=== PATIENT | female | born 1985 ===

== ENCOUNTER 2018-01-27 01:21 | Inpatient (IN) | payer BC ==
--- NOTE | 2018-01-27 02:36 | ED PDOC ---
HPI: Abdomen Time Seen by Provider: 01/27/18 02:02 Chief Complaint (Nursing): Abdominal Pain History Per: Patient History/Exam Limitations: no limitations Onset/Duration Of Symptoms: Hrs Outside of [place] travel?: No Current Symptoms Are (Timing): Still Present Location Of Pain/Discomfort: RLQ, Periumbilical Quality Of Discomfort: Sharp, Burning Associated Symptoms: Nausea, Vomiting. denies: Fever, Chills, Diarrhea Additional Complaint(s): No PMHx presenting with lower abdominal pain, states that around 4PM she started having "burning" pain to lower abdomen near umbilicus and below, took PPI and tums without relief, pain then progressed to sharp pain associated with 4 episodes of non bloody non bilious vomiting. Normal BM's, no fevers/chills. S /P C section 4 months ago. PMD: none Past Medical History Reviewed: Historical Data, Nursing Documentation, Vital Signs Vital Signs: Last Vital Signs Temp 98.8 F 01/27/18 01:59 Pulse 93 H 01/27/18 01:59 Resp 18 01/27/18 01:59 BP 102/66 01/27/18 01:59 Pulse Ox 97 01/27/18 05:58 - Medical History PMH: No Chronic Diseases - Surgical History Surgical History: - Family History Family History: States: Unknown Family Hx - Home Medications Home Medications: Ambulatory Orders Medication Instructions Recorded No Known Home Med 01/27/18 - Allergies Allergies/Adverse Reactions: Allergies Allergy/AdvReac Type Severity Reaction Status Date / Time No Known Allergies Allergy Verified 01/27/18 02:11 Review of Systems ROS Statement: Except As Marked, All Systems Reviewed And Found Negative Gastrointestinal: Positive for: Nausea, Vomiting, Abdominal Pain Physical Exam - Reviewed Nursing Documentation Reviewed: Yes Vital Signs Reviewed: Yes - Physical Exam Appears: Positive for: Well, Non-toxic, No Acute Distress Head Exam: Positive for: ATRAUMATIC, NORMAL INSPECTION, NORMOCEPHALIC Skin: Positive for: Normal Color, Warm, DRY Eye Exam: Positive for: EOMI, Normal appearance, PERRL ENT: Positive for: Normal ENT Inspection Neck: Positive for: Normal, Painless ROM Cardiovascular/Chest: Positive for: Regular Rate, Rhythm Respiratory: Positive for: CNT, Normal Breath Sounds Gastrointestinal/Abdominal: Positive for: Normal Exam, Bowel Sounds, Soft, Tenderness (RLQ tenderness). Negative for: Organomegaly, Mass, Distended, Guarding, Rebound, Hernia Back: Positive for: Normal Inspection Extremity: Positive for: Normal ROM Neurologic/Psych: Positive for: Alert, Oriented - Laboratory Results Result Diagrams: 01/27/18 03:06 01/27/18 03:06 - ECG O2 Sat by Pulse Oximetry: 97 Pulse Ox Interpretation: Normal Medical Decision Making Medical Decision MakinAM A/P: No PMhx presenting with lower abdominal/RLQ pain -patient very well appearing, normal vitals -concerned for appendicitis v. mesenteric adenitis v. complications of -will get CT, labs, give toradol and re-eval 0544 CT Abdomen/Pelvis FINDINGS: Lung bases: The visualized portions of the lung bases are normal. ABDOMEN: Liver: There are no focal liver lesions identified. Gallbladder and bile ducts: The gallbladder is normal. There is no evidence of biliary ductal dilation. No calcified stones. Pancreas: The pancreas appears normal. No ductal dilation. Spleen: The spleen is normal. Adrenals: The adrenal glands are normal. Kidneys and ureters: The kidneys appear normal. No hydronephrosis. Stomach and bowel: The stomach is normal. The duodenum is unremarkable. The colon is normal. No obstruction. No mucosal thickening PELVIS: Appendix: There is dilatation of the appendix up to 10 mm with moderate periappendiceal inflammatory stranding consistent with acute appendicitis. Bladder: The bladder is normal. Reproductive: The uterus is normal. There is a 1.8 cm RIGHT ovarian cyst. ABDOMEN and PELVIS: Intraperitoneal space: There is a small amount of free pelvic fluid present. No free air. Bones/joints: No acute fracture. No dislocation. Soft tissues: Normal. Vasculature: Normal. No abdominal aortic aneurysm. Lymph nodes: Normal. No enlarged lymph nodes. IMPRESSION: Acute appendicitis. Dictated and Authenticated by: Blaine Astudillo MD 01/27/2018 5:44 AM Eastern Time ([place] & [place]) 0550 Results explained to patient. resident medical officer is aware and will see patient on bedside. 0600 Patient to be admitted to Dr. Dominguez' service. Patient comfortable at this time. Disposition - Clinical Impression Clinical Impression: Appendicitis - Patient ED Disposition Is Patient to be Admitted: No - Disposition Disposition Time: 06:23 Condition: FAIR Forms: Ranker (Setswana)
[2018-01-27 03:12] LABS: BASO # 0.1 K/uL (0.0-0.2); BASO % 0.4 % (0.0-2.0); HEMOGLOBIN 12.7 g/dL (12.0-16.0); LYMPH # 0.8 K/uL (1.0-4.3); LYMPH % 5.7 % (20.0-40.0); MEAN CELL VOLUME 73.6 fl (81.0-99.0); MEAN CORPUSCULAR HEMOGLOBIN 23.9 pg (27.0-31.0); MEAN CORPUSCULAR HGB CONC 32.5 g/dL (33.0-37.0); MONO % 7.4 % (0.0-10.0); NEUT # 11.9 K/uL (1.8-7.0); NEUT % 86.5 % (50.0-75.0); PLATELET COUNT 190 K/uL (130-400); RBC 5.31 Mil/uL (3.80-5.20); RED CELL DISTRIBUTION WIDTH 15.1 % (11.5-14.5); WHITE BLOOD COUNT 13.7 K/uL (4.8-10.8)
[2018-01-27 03:21] LABS: SQUAMOUS EPITHIAL 1 /hpf (0-5); URINE BACTERIA OCC (<OCC); URINE BILIRUBIN NEGATIVE (NEGATIVE); URINE BLOOD NEGATIVE (NEGATIVE); URINE CLARITY CLOUDY (Clear); URINE COLOR YELLOW (YELLOW); URINE GLUCOSE (UA) NEG (Normal); URINE LEUKOCYTE ESTERASE NEG Leu/uL (Negative); URINE PROTEIN NEGATIVE (NEGATIVE); URINE UROBILINOGEN 0.2-1.0 mg/dL (0.2-1.0)
[2018-01-27 03:26] LABS: ALB/GLOB RATIO 1.1 (1.0-2.1); ALBUMIN 4.5 g/dL (3.5-5.0); ALT/SGPT 83 U/L (9-52); AST/SGOT 45 U/L (14-36); BLOOD UREA NITROGEN 13 mg/dl (7-17); CALCIUM 10.7 mg/dL (8.4-10.2); GFR AFRICAN-AMERICAN > 60; GFR NON-AFRICAN AMERICAN > 60
[2018-01-27] MEDS ORDERED: Sodium Chloride 0.9% 50 ML IV ONE (03:35)
[2018-01-27] MEDS ORDERED: Iohexol 300 100 ML IJ ONE (03:35)
[2018-01-27 04:52] LABS: ANISOCYTOSIS SLIGHT; BANDS 2 % (0-2); HYPOCHROMIC SLIGHT; LYMPHOCYTE 4 % (20-50); MONOCYTE 7 % (0-10); NEUTROPHIL 86 % (42-75); OVALOCYTES SLIGHT; PLATELET ESTIMATE NORMAL (NORMAL); REACTIVE LYMPHOCYTES 1 % (0-0); TOTAL CELLS COUNTED 100
[2018-01-27 04:53] LABS: TEARDROP CELLS SLIGHT
[2018-01-27] MEDS ORDERED: Piperacillin/Tazobact 3.375 GM in Sodium Chloride 0.9% 100 ML IVPB STA (05:44)
[2018-01-27] MEDS ORDERED: Sodium Chloride 0.9% 1,000 ML IV STA (05:45)
[2018-01-27] MEDS ORDERED: Piperacillin/Tazobact 3.375 gm Inj IVPB ONE (05:53)
[2018-01-27] MEDS ORDERED: Lactated Ringer's 1,000 ML IV SCH ×2 (06:45→09:15)
--- NOTE | 2018-01-27 06:45 | CP.PCM.HP ---
History of Present Illness - History of Present Illness History of Present Illness: Surgery H&P CC: ABD Pain 32F pmhx signficant for recent 3 months ago presents to ED with subumblical burning sensation that turned into pain radiating to the right lower quadrant that started at 1730 yesterday evening. Patient complains of associated nausea, non-bloody, bilious vomiting, and diarrhea. Patient states recent foreign travel to [place] and came back 3 days ago. Denies recent sick contacts Denies: fevers, chills, chest pain, shortness of breath, changes in vision, numbness/tingling in extremities PMH: denies PSH: (3mo ago) ALL: NKDA SocialHx: social ETOH, denies tobacco, recreational drug use FH: non-contributory Present on Admission - Present on Admission Any Indicators Present on Admission: No Review of Systems - Review of Systems All systems: reviewed and no additional remarkable complaints except - Constitutional Constitutional: As Per HPI Past Patient History - Past Social History Smoking Status: Never Smoked - PSYCHIATRIC Hx Substance Use: No - SURGICAL HISTORY Hx Surgeries: No Meds Home Medications: Home Medication List Medication Instructions Recorded Confirmed Type Ciprofloxacin [Cipro] 500 mg PO Q12 7 Days tab 01/27/18 Rx Ibuprofen [Motrin Tab] 800 mg PO Q8 #20 tab 01/27/18 Rx metroNIDAZOLE [Flagyl] 500 mg PO Q8 7 Days tab 01/27/18 Rx Allergies/Adverse Reactions: Allergies Allergy/AdvReac Type Severity Reaction Status Date / Time No Known Allergies Allergy Verified 01/27/18 02:11 Physical Exam - Constitutional Appears: Non-toxic, No Acute Distress - Head Exam Head Exam: ATRAUMATIC - Eye Exam Eye Exam: EOMI. absent: Scleral icterus - ENT Exam ENT Exam: Mucous Membranes Moist - Respiratory Exam Respiratory Exam: NORMAL BREATHING PATTERN. absent: Accessory Muscle Use, Respiratory Distress - Cardiovascular Exam Cardiovascular Exam: +S1, +S2. absent: Bradycardia, Tachycardia - GI/Abdominal Exam GI & Abdominal Exam: Rebound, Soft, Tenderness (TTP RLQ, +Mcburny). absent: Distended, Firm, Guarding, Hernia, Rigid - Extremities Exam Extremities exam: Positive for: normal inspection. Negative for: calf tenderness - Back Exam Back exam: absent: CVA tenderness (L), CVA tenderness (R) - Neurological Exam Neurological exam: Alert, Oriented x3 - Psychiatric Exam Psychiatric exam: Normal Affect - Skin Skin Exam: Intact, Warm Results - Vital Signs Recent Vital Signs: Last Vital Signs Temp 98.8 F 01/27/18 01:59 Pulse 93 H 01/27/18 01:59 Resp 18 01/27/18 01:59 BP 102/66 01/27/18 01:59 Pulse Ox 97 01/27/18 06:23 - Labs Result Diagrams: 01/27/18 03:06 01/27/18 03:06 Labs: Laboratory Results - last 24 hr 01/27/18 01/27/18 01/27/18 03:00 03:06 03:06 WBC 13.7 H RBC 5.31 H Hgb 12.7 Hct 39.1 MCV 73.6 L MCH 23.9 L MCHC 32.5 L RDW 15.1 H Plt Count 190 MPV 9.0 Neut % (Auto) 86.5 H Lymph % (Auto) 5.7 L [place] % (Auto) 7.4 Eos % (Auto) 0.0 Baso % (Auto) 0.4 Neut # (Auto) 11.9 H Lymph # (Auto) 0.8 L [place] # (Auto) 1.0 H Eos # (Auto) 0.0 Baso # (Auto) 0.1 Neutrophils % (Manual) 86 H Band Neutrophils % 2 Lymphocytes % (Manual) 4 L Reactive Lymphs % 1 H Monocytes % (Manual) 7 Platelet Estimate Normal Hypochromasia (manual) Slight Anisocytosis (manual) Slight Tear Drop Cells Slight Ovalocytes Slight Sodium 140 Potassium 4.6 Chloride 104 Carbon Dioxide 22 Anion Gap 19 BUN 13 Creatinine 0.6 L Est GFR ( Amer) > 60 Est GFR (Non-Af Amer) > 60 Random Glucose 124 H Lactic Acid Calcium 10.7 H Total Bilirubin 1.2 AST 45 H ALT 83 H Alkaline Phosphatase 84 Total Protein 8.4 H Albumin 4.5 Globulin 3.9 Albumin/Globulin Ratio 1.1 Urine Color Urine Clarity Urine pH Ur Specific [place] Urine Protein Urine Glucose (UA) Urine Ketones Urine Blood Urine Nitrate Urine Bilirubin Urine Urobilinogen Ur Leukocyte Esterase Urine RBC (Auto) Urine Microscopic WBC Ur Squamous Epith Cells Urine Bacteria Blood Type B POSITIVE Antibody Screen Negative BBK History Checked No verified bt 01/27/18 01/27/18 03:06 03:15 WBC RBC Hgb Hct MCV MCH MCHC RDW Plt Count MPV Neut % (Auto) Lymph % (Auto) [place] % (Auto) Eos % (Auto) Baso % (Auto) Neut # (Auto) Lymph # (Auto) [place] # (Auto) Eos # (Auto) Baso # (Auto) Neutrophils % (Manual) Band Neutrophils % Lymphocytes % (Manual) Reactive Lymphs % Monocytes % (Manual) Platelet Estimate Hypochromasia (manual) Anisocytosis (manual) Tear Drop Cells Ovalocytes Sodium Potassium Chloride Carbon Dioxide Anion Gap BUN Creatinine Est GFR ( Amer) Est GFR (Non-Af Amer) Random Glucose Lactic Acid 1.1 Calcium Total Bilirubin AST ALT Alkaline Phosphatase Total Protein Albumin Globulin Albumin/Globulin Ratio Urine Color Yellow Urine Clarity Cloudy Urine pH 6.0 Ur Specific [place] 1.025 Urine Protein Negative Urine Glucose (UA) Neg Urine Ketones Negative Urine Blood Negative Urine Nitrate Negative Urine Bilirubin Negative Urine Urobilinogen 0.2-1.0 Ur Leukocyte Esterase Neg Urine RBC (Auto) 4 H Urine Microscopic WBC 1 Ur Squamous Epith Cells 1 Urine Bacteria Occ H Blood Type Antibody Screen BBK History Checked Assessment & Plan - Assessment and Plan (Free Text) Assessment: 32F w/ acute appendicitis Plan: - NPO - IVF/Abx - Pain control and anti-emetic PRN - plan for OR today - further recs per Dr. Dominguez surgical attending PGY1
[2018-01-27 07:15] LABS: INR 1.1 (0.9-1.2); PROTHROMBIN TIME 12.3 Seconds (9.8-13.1)
[2018-01-27] MEDS ORDERED: Bupivacaine HCl 0.5% PF (10 ml) Inj ONE (07:25)
[2018-01-27] MEDS ORDERED: Lidocaine 2% MPF (5 ml) Inj ONE (07:25)
[2018-01-27] MEDS ORDERED: Lactated Ringer's 1,000 ML IV ONE (07:45)
[2018-01-27] MEDS ORDERED: metroNIDAZOLE 500mg/100ml NS 100 ML IVPB ONE (07:49)
[2018-01-27] MEDS ORDERED: Ciprofloxacin 400mg/200ml D5W 400 MG/200 ML BAG IVPB ONE (07:49)
[2018-01-27] MEDS ORDERED: Succinylcholine 200 mg/10 ml Inj IV ONE (07:51)
[2018-01-27] MEDS ORDERED: Propofol 10 mg/ml Inj (20 ML) ONE (07:51)
[2018-01-27] MEDS ORDERED: Rocuronium 10 mg/ml (5 ml) ONE (07:51)
[2018-01-27] MEDS ORDERED: Ciprofloxacin 400mg/200ml D5W IVPB ONE (07:57)
[2018-01-27] MEDS ORDERED: metroNIDAZOLE 500mg/100ml NS IVPB ONE (08:08)
[2018-01-27] MEDS ORDERED: Oxycodone/Acetaminophen 5/325 mg Tab PO PRN (08:59)
[2018-01-27] MEDS ORDERED: HYDROmorphone 0.5 mg/0.5 ml ISec IVP PRN (09:08)
[2018-01-27] MEDS ORDERED: Lactated Ringer's 500 ML IV ONE ×3 (10:35)
--- NOTE | 2018-01-27 10:56 | CT ---
PROCEDURE: CT Abdomen and Pelvis with contrast HISTORY: rlq pain COMPARISON: None. TECHNIQUE: Contrast dose: 90 mL Omnipaque 300 Radiation dose: Total exam DLP = 274.7 mGy-cm. This CT exam was performed using one or more of the following dose reduction techniques: Automated exposure control, adjustment of the mA and/or kV according to patient size, and/or use of iterative reconstruction technique. FINDINGS: LOWER THORAX: Unremarkable. LIVER: Unremarkable. No gross lesion or ductal dilatation. GALLBLADDER AND BILE DUCTS: Unremarkable. PANCREAS: Unremarkable. No gross lesion or ductal dilatation. SPLEEN: Unremarkable. ADRENALS: Unremarkable. No mass. KIDNEYS AND URETERS: Unremarkable. No hydronephrosis. No solid mass. VASCULATURE: Unremarkable. No aortic aneurysm. BOWEL: Unremarkable. No obstruction. No gross mural thickening. APPENDIX: Dilated appendix with thick, hyperenhancing wall measuring up to 1.2 cm with periappendiceal stranding. PERITONEUM: Unremarkable. No free fluid. No free air. LYMPH NODES: Unremarkable. No enlarged lymph nodes. BLADDER: Unremarkable. REPRODUCTIVE: Involuting right corpus luteal follicle. BONES: No acute fracture. OTHER FINDINGS: None. IMPRESSION: Acute appendicitis.
--- NOTE | 2018-01-27 11:13 | PCM.SURG1 ---
Surgeon's Initial Post Op Note - Surgeon's Notes Surgeon: Dr. Dominguez Lab Engineer: PGY1, Jennifer PGY1 Type of Anesthesia: General Endo Pre-Operative Diagnosis: ACUTE Appendicitis Operative Findings: inflammed appendix Post-Operative Diagnosis: as above Operation Performed: laparoscopic appendectomy Specimen/Specimens Removed: appendix Estimated Blood Loss: EBL {In ML}: 15 Drains Used: No Drains Post-Op Condition: Fair Date of Surgery/Procedure: 01/27/18 Time of Surgery/Procedure: 08:00
[2018-01-27 11:55] VITALS: RESP 18
[2018-01-27 15:00] VITALS: O2SAT 100
[2018-01-27 17:04] VITALS: BP 110/70; PULSE 87; TEMP 99.3
--- NOTE | 2018-01-29 03:33 | OP ---
PROCEDURE DATE: 01/27/2018 PREOPERATIVE DIAGNOSES: 1. Acute appendicitis. 2. Incarcerated umbilical hernia. POSTOPERATIVE DIAGNOSES: 1. Acute appendicitis. 2. Incarcerated umbilical hernia. PROCEDURES: 1. Laparoscopic appendectomy. 2. Laparoscopic enterolysis. 3. Repair of umbilical hernia. SURGEON: Joshua Dominguez MD TYPE OF ANESTHESIA: General endotracheal. DRAINS: None. COMPLICATIONS: None. ESTIMATED BLOOD LOSS: 5 mL. INTRAVENOUS FLUIDS: 1 L of Ringer's lactate. CLINICAL INFORMATION: Ms. Cortes is a 32-year-old female who recently had a who has been experiencing persistent and worsening right lower quadrant abdominal pain accompanied by nausea and vomiting over the last 48 hours. She came to the [facility], and her clinical exam was significant for point tenderness in the right lower quadrant as well as guarding and a small incarcerated umbilical hernia. The white blood count appeared to be elevated, and the CT scan confirmed the clinical diagnosis of acute appendicitis. Based on this information, the patient was taken emergently to the operating room for surgical intervention. INTRAOPERATIVE FINDINGS: The appendix appeared to be partly concealed by the cecum and the omentum with thick whitish exudate covering most of its surface. There was a small amount of reactive fluid in the right pericolic gutter as well as the wall of the pelvic area. There were adhesions from the previous in the anterior lower abdominal wall as well as a small incarcerated umbilical hernia. DESCRIPTION OF THE SURGERY: The patient was brought into the operating room after obtaining informed consent and identifying the patient and the surgery plan. The patient was placed on the operating room table in supine position. After smooth induction of general endotracheal anesthesia, Venodyne boots were placed in the both legs, and prophylactic antibiotics were given. The entire abdomen was prepped and draped in the usual sterile fashion. The infraumbilical area was infiltrated with local anesthetic which comprised of 0.5% Marcaine and 1% lidocaine with epinephrine in equal volumes. A 15-blade was used to perform a vertical incision, which was then brought down to subcutaneous tissue using Bovie electrocautery. The contents of this umbilical hernia sac were identified and pushed back to the peritoneal cavity, and a 0 Vicryl stitch was placed on each side of the incised fashion. A Arya trocar was inserted under direct visualization. The obturator was removed and the port was connected to the CO2 tank, generating pneumoperitoneum up to 15 mmHg. The patient's position was changed that of a Trendelenburg with left side down exposing the right lower quadrant abdominal contents. A 10-mm 30-degree laparoscopic video camera was inserted, and the abdomen was inspected. The appendix was identified, partly concealed by the cecum and the omentum, was covered by thick layer of whitish exudate. There was a small amount of reactive cloudy fluid in the right pericolic gutter as well as the pelvis. There appeared to be adhesions in the anterior wall of the lower abdominal wall from the recent surgery. Two 5-mm ports were inserted in the lower abdomen, one in the left lower quadrant at the end of the Pfannenstiel incision and one in the middle of the Pfannenstiel incision suprapubically after infiltrating the skin with local anesthetic and incising with 15-blade. The 5-mm ports were inserted through these incisions under direct laparoscopic visualization. The obturators were removed, and a 5-mm LigaSure as well as a 5-mm endograsper were inserted. The appendix was grasped and dissected gradually meticulously from the adhesions to the surrounding tissues mainly the cecum and the omentum as well as the terminal ileum. Upon completing this part of the dissection, the appendix was grasped from its mid portion to retract upwards exposing the entire length all the way to the junction between the base of the appendix and the cecum as well as the entire mesoappendix. The 5-mm LigaSure was used to secure the mesoappendix all the way to the area of the cecum leaving intact. The camera was fixed from 10:30 to 5:30 which was inserted through the left lower quadrant port and through the infraumbilical port, an [place] endostapler was inserted and fired across the base of the appendix. The specimen was placed in the endo bag and was removed from the operating field. It was sent to Pathology, appropriately labelled for permanent section. The abdomen was irrigated with copious amounts of warm normal saline. There was no evidence of bleeding from the mesoappendix or the staple line of the appendiceal orifice, and there was no evidence of discharge from the staple line. The infraumbilical port was removed, and the umbilical hernial defect was closed with interrupted 0 Vicryl stitches in a tension-free fashion. The remaining two 5-mm ports were removed under direct laparoscopic visualization. There was no evidence of bleeding from the port sites. All skin incisions were closed with a 4-0 continuous subcuticular Monocryl stitch for optimal wound healing and sealed further with Steri-Strips. At the end of the surgery, the counts of instruments, gauze, and needles were correct x2. The patient tolerated the surgery well and was transferred in stable condition to the recovery room. Joshua Dominguez MD
== END 2018-01-27 17:10 | disposition home or self-care (01) | DRG 342 ==
LOC: H.ER 01:21 → H.ERHOLD 05:45
PROVIDERS: ADMIT Internal Medicine; ATTEND Internal Medicine
PROC: 0WQF0ZZ Repair Abdominal Wall, Open Approach (ICD-10-PCS; 2018-01-27)
PROC: 0DTJ4ZZ Resection of Appendix, Percutaneous Endoscopic Approach (ICD-10-PCS; principal; 2018-01-27 07:45)
DX: K35.80 Unspecified acute appendicitis (principal); K42.0 Umbilical hernia with obstruction, without gangrene; N83.201 Unspecified ovarian cyst, right side